=== PATIENT | male | born 1995 | race Two or more races ===

== ENCOUNTER 2024-02-26 08:01 | Emergency (ER) | payer MEDICAID, OTHER ==
[~2024-02-26] VITALS: Ht 170.2 cm; Wt 80.9 kg
[2024-02-26 10:20] VITALS: BP 128/86; PULSE 100; RESP 14; TEMP 98.9; O2SAT 100
[2024-02-26] MEDS ORDERED: PROM1SOL4 PO (10:21)
[2024-02-26] MEDS ORDERED: IBUP1TAB5 PO (10:21)
[2024-02-26] MEDS ORDERED: BENZ100C97 PO (10:21)
[2024-02-26] MEDS ORDERED: AUG875T PO (10:21)
== END 2024-02-26 10:34 | disposition home or self-care (01) ==
LOC: ER 08:01
DX: B34.9 Viral infection, unspecified (principal); J06.9 Acute upper respiratory infection, unspecified